=== PATIENT | male | born 1985 | race Caucasian/White ===

== ENCOUNTER → 2018-07-18 09:41 | Outpatient (CLI) | payer OTHER, SELFPAY | PROVIDERS: Visit Provider Orthopaedic Surgery | DX: M25.561 Pain in right knee (principal) | CPT/HCPCS: 73564 ==

== ENCOUNTER → 2018-07-20 11:00 | Outpatient (CLI) | payer OTHER, SELFPAY | PROVIDERS: Visit Provider Orthopaedic Surgery | DX: S83.241A Other tear of medial meniscus, current injury, right knee, initial encounter (principal) | CPT/HCPCS: 73721 ==

== ENCOUNTER 2018-08-23 08:10 | Day surgery (SDC) | payer OTHER, SELFPAY ==
[2018-08-23] VITALS (7 sets, daily range): BP systolic 129–178; BP diastolic 72–99; PULSE 66–107; RESP 16; TEMP 36.5–36.9; O2SAT 90–99; BMI 29.5
[2018-08-23] MEDS: Cefazolin 2 GM in 0.9% Normal Saline 100 ML IV (09:40)
[2018-08-23] MEDS: Mupirocin Ointment 22gm Tube 1 APPLIC (12:08)
--- NOTE | 2018-08-23 12:13 | DCINST_ITS ---
Discharge Diet: No Restrictions - leave dressing on and knee locked in full extension at all times until seen in office on tuesday with alfredito, start asa 325 bid, elevate, ice and ankle pumps, call with concerns, ttwb right leg with brace locked in extension, Discharge Activity: May Not Drive May shower in (days): 1 Ice area for (Minutes): 20 - Every hour while awake. Weight Bearing Status: Weight bearing as tolerated Keep extremity elevated above heart level: Operative Extremity Call your doctor if your incision/area has: Continuous Slow Oozing, Sudden Increased Bleeding, Increased Pain/ Swelling, Increased Redness, Foul Smelling Discharge Call your doctor if you observe: Fever of 101 or Higher, Coldness, Increased Pain, Numbness or Tingling, Change in Color, Calf discomfort Allergies/Adverse Reactions: Allergies No Known Allergies Allergy (Verified 08/16/18 11:05) Medications to take at Discharge Oxycodone HCl/Acetaminophen [Percocet 5/325] 1 - 2 tablet PO Q6H PRN PRN 5 Days #60 tablet 08/23/18 The following prescriptions were given: Oxycodone HCl/Acetaminophen [Percocet 5/325] 1 - 2 tablet PO Q6H PRN PRN 5 Days #60 tablet PRN Reason: Pain Primary Care Physician: Care Physician,No Primary [Primary Care Provider] - Test Results: Test results from this visit will be discussed in further detail at your follow- up appointment, if applicable. Please Follow Up With: Ivet Pollock, DO - [phone]
--- NOTE | 2018-08-23 12:13 | PCM.OPRPT ---
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 Failed conservative treatment MRI confirms patella defect down to bone. Wrist benefits alternatives surgery discussed with patient. Risks including but not limited to blood loss pump, blood clot, infection, neurovascular, failure procedure, loss of life and loss of limb. Patient is aware would like proceed with knee arthroscopy repair is indicated. Operative note Patient seen and examined preoperative holding area. Correct leg was marked. Patient is brought to the operating room placed supine on the operating table. Sign, anesthesia, antibiotics were administered. The leg was prepped and draped in usual sterile fashion with tourniquet around his upper thigh. All bony prominences well-padded and the SCDs placed on his contralateral limb. Timeout was performed. We then marked out her anterior lateral anterior medial portals.. The left leg was elevated exsanguinated and tourniquet was raised her pressure of 250 torr. We used an 11 blade to create her then in standard anterolateral portal for diagnostic arthroscopy. Patella had an obviously obvious defect in the central to lateral third about 5 x 5-5 x 8 mm and unstable cartilage pieces on either side as well. We then moved to the medial joint line created anterior medial portal under direct visualization. There is extensive fibrosis throughout the patella and synovitis which was gently resected in both anterior medial and left anterior lateral joint line with a shaver. We then paid attention to the patella were resected with a shaver any loose pieces was better showed us the defect that was down to bone. We then used accommodation of a curette and a PICC to gently debride the calcified cartilage layer. We then used an Arthrex is microfracture bur to perform a microfracture. We then prepared in standard technique the bio cartilage on the back table. We irrigated and drained the knee. We then used swabs to clean the area out we applied the bio cartilage to the defect and then Tisseel on top. After this we had did have good fixation of the graft to the patella. However due to its location and the amount of friction will undergo elected to keep the patient's knee in full extension until Tuesday. Sterile dressings were applied after the incision was closed with interrupted 4-0 nylon stitches. We did make an accessory portal anterior medial in order to resect some of the synovial lining that was interfering with visualization after we had dried out the joint. Again sterile dressings and a knee locked in extension was applied. Patient tolerated procedure well there are no comp occasions transferred to recovery room in stable condition. Next Postoperative note Discussed with Follow-up in 2 follow-up on Tuesday with Donta for dressing change and brace adjustment Call with concerns Hospital has pharmacy pharmacy has prescriptions, patient to start aspirin 325 twice daily this was discussed with as well Will discuss pictures in 2 weeks This note was generated with [employer] dictation software. It may contain incorrect words, spelling, and punctuation that were not noted in checking the note before signing.
[2018-08-23] MEDS: HYDROcodone Bitartrate/Apap 5/325 Tablet PO (13:42)
[2018-08-23] MEDS: Ondansetron 4 MG/2 ML Vial IV (13:44)
== END 2018-08-23 16:27 | disposition home or self-care (01) ==
LOC: SDC 08:11 → AC 08:14
PROVIDERS: Visit Provider Orthopaedic Surgery
PROC: (CPT 29870; principal; 2018-08-23 09:30)
DX: M23.8X1 Other internal derangements of right knee (principal); M67.51 Plica syndrome, right knee
CPT/HCPCS: 29879; 64447; J7120; J2405

== ENCOUNTER 2018-11-02 10:30 | Outpatient (RCR) | payer OTHER, SELFPAY ==
--- NOTE | 2018-10-11 11:06 | HP.PTEVAL_ITS ---
Patient's Visit Information EMI WHALEY is a 32 year old M referred to Physical Therapy by Ivet Pollock DO with a diagnosis of R knee arthroscopy. Date of Evaluation: 10/11/18 Physical Therapist: Den Burgess PT, - Visit Plan Frequency: 2-3x /Week Duration: 4-6 Weeks Plan: R knee stretching and strengthening, balance and proprio, core strengthening, bike, and hep - Subjective Findings: DOS: 08/23/18. Pt reports he was playing in a kickball tournament when he injured his R knee. Pt reports he had a microfracture procedure performed to aid with repairing his knee. Pt reports he has been in a lot of pain since having the surgery. Pt reports he has sleep difficulty secondary to pain. Pt reports he was nonweight bearing for 6 weeks after the surgery. Pt is now able to ambulate without crutches. Pt reports his knee is no longer locking up or grinding with ambulation. 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 Pt reports he is very limited with bending his R knee secondary to pain. 5/10 at rest, 8/10 at worst. - Pain R knee Pain Intensity (Out of 10): 5 Pain Intensity Range: 8 - Objective Neuro: B LE sensation is WNL to light touch. B achilles reflex= 2/3. Girth at joint line: R knee 38 cm, L knee 36 cm. ROM: L knee 0-120, R knee 0-10-85. MMT: R knee 3/5, L knee 5/5 - Goals Goal 1:: Decrease R knee pain x 50% to aid with sleep Goal Time Frame: 4-6 Weeks Goal 2:: Increase R knee strength x 1 grade to aid with stair negotiation Goal Time Frame: 4-6 Weeks Goal 3:: Increase R knee ROM x 20 degrees to aid with restoring normal gait pattern Goal Time Frame: 4-6 Weeks Goal 4:: I with HEP Goal Time Frame: 4-6 Weeks - Rehabilitation Potential Physical Therapy Diagnosis: R knee pain, weakness, and limited ROM secondary to R knee arthroscopy Rehabilitation Potential: Good - Anticipated Interventions Patient/Client Instruction: Educate patient on: Condition, Plan of Care For the Purpose of:: To improve self management Therapeutic Exercise to Include: Strength training, Endurance training, Balance training, Flexibilty training, Gait and locomotor training, Passive ROM, Active ROM, Dynamic Lumbar Stabilization For the Purpose of:: To decrease pain, To increase ROM, To improve muscle performance and motor function Cryotherapy (ice pack, ice massage): Yes For the Purpose of:: To decrease pain Thank you for the opportunity to evaluate your patient. For Medicare and Medicare HMO plans, please review the plan of care and approve it. It will need to be FAXED BACK to us at [phone] for Medicare purposes. For Medicare only, by signing this I certify the plan of care. Please let me know if there are questions or concerns regarding this plan of care. Physician Signature: Date:
--- NOTE | 2019-01-30 14:44 | HP.PT.NRP ---
HP - Discharge Summary (1) - Patient Information EMI WHALEY was seen in my office for initial evaluation on 10/11/18. The following Plan of Care was established for this patient: Initial Frequency: 2-3x /Week Initial Duration: 4-6 Weeks - Anticipated Interventions Patient/Client Instruction: Educate patient on: Condition, Plan of Care For the Purpose of:: To improve self management Therapeutic Exercise to Include: Strength training, Endurance training, Balance training, Flexibilty training, Gait and locomotor training, Passive ROM, Active ROM, Dynamic Lumbar Stabilization For the Purpose of:: To decrease pain, To increase ROM, To improve muscle performance and motor function Cryotherapy (ice pack, ice massage): Yes For the Purpose of:: To decrease pain This patient was last seen in our office . Pertinent comments regarding their Physical therapy will appear below: Pt was treated for 8 PT visits for R knee pain after having arthroscopy through the date of 11/02/18. Pt has not returned since then, and is discontinued at this time. At this point I will be discontinuing this patient from physical therapy. I would be happy to see this patient again in the future if found appropriate by the physician. Thank you! Den Burgess, PT, ATC
== END 2018-11-02 19:00 | disposition home or self-care (01) ==
LOC: PT 10:30
PROVIDERS: Referring Provider Orthopaedic Surgery; Visit Provider Orthopaedic Surgery
DX: Z98.890 Other specified postprocedural states (principal)
CPT/HCPCS: 97110; 97161

== ENCOUNTER 2021-11-18 10:51 | Outpatient (CLI) | payer BC, SELFPAY ==
[2021-11-18 11:01] VITALS: BP 133/80; PULSE 60; RESP 16; TEMP 37.1; O2SAT 100; BMI 30.1
[2021-11-18] MEDS: 0.9% Saline Lock 10 ML Syringe IV (11:02)
[2021-11-18 12:05] VITALS: BP 123/76; PULSE 57; RESP 16; TEMP 37.1; O2SAT 100
[2021-11-18 12:53] VITALS: BP 114/69; PULSE 58; RESP 16; TEMP 37.1; O2SAT 100
== END 2021-11-18 23:59 | disposition home or self-care (01) ==
LOC: MS3OUT 10:55 → MS3 10:55
PROVIDERS: Referring Provider Nurse Practitioner Adult Health; Visit Provider Nurse Practitioner Adult Health
DX: Z23 Encounter for immunization (principal); U07.1 COVID-19
CPT/HCPCS: J7050; M0243; A4216; Q0240